=== PATIENT | male | born 1950 | race African-American/Black ===

== ENCOUNTER 2017-12-21 17:16 | Inpatient (IN) | payer BC, OTHER ==
--- NOTE | 2017-12-21 17:39 | PDOC ---
History of Present Illness - General Chief Complaint: Blood Pressure Problem Stated Complaint: SHORT OF BREATH Time Seen by Provider: 12/21/17 17:30 History Source: Patient Exam Limitations: No Limitations - History of Present Illness Initial Comments: 12/21/17 17:38 60y M hx of htn, dm presents with complaint of sob. Pt states he was outside cleaning his snow off of his car and began to feel sob. denies any associated cp , headache, diaphoresis, n/v, dizziness, numbness/tingling/weakness, palitations , extremity swelling, back pain. The patient does note a few episodes of similar sob, and burning chest pain the past few weeks, but none in the past few days. 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 pt ntose he has not taken any bp meds the past few days due to running out of them. recently changed his htn meds from bystolic to clonidine Past History - Past Medical History Allergies/Adverse Reactions: Allergies Allergy/AdvReac Type Severity Reaction Status Date / Time No Known Allergies Allergy Verified 12/21/17 17:33 Home Medications: Ambulatory Orders Amlodipine Bes/Olmesartan Med [Chyna 10-40 mg Tablet] 1 each PO DAILY 12/21/17 Clonidine HCl [Catapres] 0.2 mg PO BID 12/21/17 Nebivolol HCl [Bystolic] 10 mg PO DAILY 12/21/17 Sitagliptin Phos/Metformin HCl [Janumet 50-500 mg Tablet] 1 each PO BID Review of Systems - Review of Systems Able to Perform ROS?: Yes Comments:: 12/21/17 18:52 Constitutional - no reported Fever, Chills, HEENT: no reported vision changes, sore throat Respiratory: +sob, no reported cough, hemoptysis Cardiac: no reported chest pain, palpitations, light headedness, leg swelling Abd/GI: no reported abd pain, nausea, vomiting, blood per rectum, melena, diarrhea : no reported dysuria, frequency, discharge Musculskelatal - no reported back pain, joint swelling skin - no reported bruising, erythema, rash neurological: no reported headache, numbness, focal weakness, tingling, ataxia, hematologic: no reported easy bruising, easy bleeding *Physical Exam - Physical Exam Comments: 12/21/17 18:53 GENERAL: The patient is awake, alert, and fully oriented, Nontoxic - in no acute distress. HEAD: Normocephalic, atraumatic. EYES: extraocular movements intact, sclera anicteric, conjunctiva clear. ENT: Normal voice, Moist mucous membranes. NECK: Normal range of motion, supple LUNGS: Breath sounds equal, clear to auscultation bilaterally. No wheezes, no rhonchi, no rales. HEART: Regular rate and rhythm, normal S1 and S2 without murmur, rub or gallop. ABDOMEN: Soft, nontender, normoactive bowel sounds. No guarding, no rebound. . No CVA tenderness EXTREMITIES: Normal range of motion, trace edema. No calf tenderenss, neg homans NEUROLOGICAL: No facial assymetry, Normal speech, PSYCH: Normal mood, normal affect. SKIN: Warm, Dry, normal turgor, Heart Score/ECG Review - ECG Impressions Comment:: 12/21/17 20:54 Twelve-lead EKG was performed and reviewed by me. There is normal sinus rhythm with a rate of 108 LVH LAFB ED Treatment Course - LABORATORY CBC & Chemistry Diagram: 12/21/17 18:25 12/21/17 18:25 Medical Decision Making - Medical Decision Making 12/21/17 19:10 ddx - hypertensive emergency -?pulm edema trace edema in LE however lugns clear to ascultation cxr cw congestion pts BP improved slightly - but will give pt ntg will reassess his vitals awaiting bnp & trop anticpate admission for further management 12/21/17 20:48 will admit for htn emergency 12/21/17 21:07 case dw MARCELO harrison agree with admission for further management will try to control his bp - wll giv ealsix and his normal dose of clonadine if poorly contoroled, will consider transfer to [facility] pt feeling better, no cp Case discussed in detail with admitting physician including history, physical exam and ancillary studies. Admitting physician has assumed care for the patient, will follow all pending diagnostics and will complete the evaluation and treatment. *DC/Admit/Observation/Transfer Diagnosis at time of Disposition: Hypertensive emergency CHF (congestive heart failure) Qualifiers: Heart failure type: other Qualified Code(s): I50.9 - Heart failure, unspecified - Discharge Dispostion Condition at time of disposition: Stable Decision to Admit order: Yes - Referrals Referrals: Maximino Werner MD [Primary Care Provider] - - Patient Instructions - Post Discharge Activity
[2017-12-21 18:15] LABS: URINE APPEARANCE Clear; URINE BILIRUBIN Negative (NEGATIVE); URINE COLOR Yellow; URINE GLUCOSE (UA) Negative (NEGATIVE); URINE KETONE Negative (NEGATIVE); URINE LEUK ESTERASE Negative (NEGATIVE); URINE NITRITE Negative (NEGATIVE); URINE PROTEIN 3+ (NEGATIVE); URINE UROBILINOGEN 0.2 (0.2-1.0)
[2017-12-21] MEDS ORDERED: NITROGLYCERIN SUBLINGUAL 1/150 0.4 MG TAB SL ONE (18:49)
[2017-12-21 19:01] LABS: BASO % 1.7 % (0-2.0); EOS % 1.4 % (0-4.5); HEMATOCRIT 50.3 % (35.4-49); LYMPH % 16.4 % (8-40); MCH 28.1 pg (25.7-33.7); MCHC 31.9 g/dl (32.0-35.9); MEAN CELL VOLUME 88.1 fl (80-96); MEAN PLT VOLUME 10.1 fl (7.5-11.1); MONO % 7.5 % (3.8-10.2); PLATELET COUNT 193 K/MM3 (134-434); RBC 5.71 M/mm3 (4.00-5.60); RDW 12.3 % (11.9-15.9); WHITE BLOOD COUNT 7.5 K/mm3 (4.0-10.8)
[2017-12-21 19:07] LABS: ALBUMIN 3.9 g/dl (3.5-5.0); ALK PHOS 75 U/L (32-92); ANION GAP 10 MMOL/L (8-16); BILIRUBIN,TOTAL 0.6 mg/dl (0.2-1.0); BLOOD UREA NITROGEN 25 mg/dl (7-18); CHLORIDE 98 mmol/L (98-107); CO2 29 mmol/L (22-28); CREATININE 1.4 mg/dl (0.6-1.3); GLUCOSE,RANDOM 168 mg/dl (74-106); POTASSIUM 3.8 mmol/L (3.5-5.1); SGOT/AST 22 U/L (10-42); SGPT/ALT 23 U/L (10-40); SODIUM 137 mmol/L (136-145); TOT PROT 7.5 g/dl (6.4-8.3)
[2017-12-21 19:15] LABS: URINE WBC 0-2 (0-2)
[2017-12-21] MEDS ORDERED: NITROGLYCERIN SUBLINGUAL 1/150 0.4 MG TAB ONE (19:28)
[2017-12-21] MEDS ORDERED: cloNIDine HCL 0.1 MG TABLET PO ONE (20:48)
[2017-12-21] MEDS ORDERED: cloNIDine HCL 0.1 MG TABLET ONE (20:50)
[2017-12-21] MEDS ORDERED: FUROSEMIDE 40 MG TABLET (FP) PO ONE (21:05)
[2017-12-21] MEDS ORDERED: FUROSEMIDE 40 MG TABLET (FP) ONE (21:07)
[2017-12-21 21:43] LABS: N-TERMINAL BNP 756.2 pg/ml (5-125)
--- NOTE | 2017-12-21 22:49 | HP ---
CHIEF COMPLAINT: SOB PCP: Dr. Rodriguez HISTORY OF PRESENT ILLNESS: This is a 67 y/o man with a PMHx of HTN, NIDDM. Who presents to the ED with SOB after clearing snow from his car today. Patient reports having an episode of SOB after eating last Monday. The patient reports not taking his BP meds for 2- 3 days because he forget to take them due to his busy work schedule. 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 Family History: Unknown hx of parents- both Brother- Alive and well Allergies No Known Allergies Allergy (Verified 12/21/17 17:33) HOME MEDICATIONS: Home Medications Medication Instructions Recorded Amlodipine Bes/Olmesartan Med 1 each PO DAILY 12/21/17 [Chyna 10-40 mg Tablet] Clonidine HCl [Catapres] 0.2 mg PO BID 12/21/17 Nebivolol HCl [Bystolic] 10 mg PO DAILY 12/21/17 Sitagliptin Phos/Metformin HCl 1 each PO BID 12/21/17 [Janumet 50-500 mg Tablet] REVIEW OF SYSTEMS CONSTITUTIONAL: Absent: fever, chills, diaphoresis, generalized weakness, malaise, loss of appetite, weight change HEENT: Absent: rhinorrhea, nasal congestion, throat pain, throat swelling, difficulty swallowing, mouth swelling, ear pain, eye pain, visual changes CARDIOVASCULAR: Absent: chest pain, syncope, palpitations, irregular heart rate, lightheadedness , peripheral edema RESPIRATORY: shortness of breath, dyspnea with exertion Absent: cough, orthopnea, wheezing, stridor, hemoptysis GASTROINTESTINAL: Absent: abdominal pain, abdominal distension, nausea, vomiting, diarrhea, constipation, melena, hematochezia GENITOURINARY: Absent: dysuria, frequency, urgency, hesitancy, hematuria, flank pain, genital pain MUSCULOSKELETAL: Absent: myalgia, arthralgia, joint swelling, back pain, neck pain SKIN: Absent: rash, itching, pallor HEMATOLOGIC/IMMUNOLOGIC: Absent: easy bleeding, easy bruising, lymphadenopathy, frequent infections ENDOCRINE: Absent: unexplained weight gain, unexplained weight loss, heat intolerance, cold intolerance NEUROLOGIC: Absent: headache, focal weakness or paresthesias, dizziness, unsteady gait, seizure, mental status changes, bladder or bowel incontinence PSYCHIATRIC: Absent: anxiety, depression, suicidal or homicidal ideation, hallucinations. PHYSICAL EXAMINATION Vital Signs - 24 hr 12/21/17 12/21/17 12/21/17 17:29 18:00 18:44 Temperature 98.6 F Pulse Rate 115 H Pulse Rate [ 115 H 112 H Apical] Respiratory 20 21 H 23 H Rate Blood Pressure 236/140 H Blood Pressure 190/126 H 184/130 H [Right Arm] O2 Sat by Pulse 96 96 94 L Oximetry (%) 12/21/17 20:30 Temperature Pulse Rate Pulse Rate [ 105 H Apical] Respiratory 21 H Rate Blood Pressure Blood Pressure 177/123 H [Right Arm] O2 Sat by Pulse 97 Oximetry (%) GENERAL: Awake, alert, and fully oriented, in no acute distress. HEAD: Normal with no signs of trauma. EYES: Pupils equal, round and reactive to light, extraocular movements intact, sclera anicteric, conjunctiva clear. No lid lag. EARS, NOSE, THROAT: Ears normal, nares patent, oropharynx clear without exudates. Moist mucous membranes. NECK: Normal range of motion, supple without lymphadenopathy, JVD, or masses. LUNGS: Breath sounds equal, clear to auscultation bilaterally. No wheezes, and no crackles. No accessory muscle use. HEART: Regular rate and rhythm, normal S1 and S2 without murmur, rub or gallop. ABDOMEN: Soft, nontender, not distended, normoactive bowel sounds, no guarding, no rebound, no masses. No hepatomegaly or splenomegaly. MUSCULOSKELETAL: Normal range of motion at all joints. No bony deformities or tenderness. No CVA tenderness. UPPER EXTREMITIES: 2+ pulses, warm, well-perfused. No cyanosis. No clubbing. No peripheral edema. LOWER EXTREMITIES: 2+ pulses, warm, well-perfused. No calf tenderness. +1 R>L peripheral edema. NEUROLOGICAL: Cranial nerves II-XII intact. Normal speech. Gait not observed. PSYCHIATRIC: Cooperative. Good eye contact. Appropriate mood and affect. SKIN: Warm, dry, normal turgor, no rashes or lesions noted, normal capillary refill. Laboratory Results - last 24 hr 12/21/17 12/21/17 12/21/17 18:00 18:25 18:25 WBC 7.5 RBC 5.71 H Hgb 16.0 Hct 50.3 H MCV 88.1 MCH 28.1 MCHC 31.9 L RDW 12.3 Plt Count 193 MPV 10.1 Absolute Neuts (auto) 5.5 Neutrophils % 73.0 Lymphocytes % 16.4 Monocytes % 7.5 Eosinophils % 1.4 Basophils % 1.7 Sodium 137 Potassium 3.8 Chloride 98 Carbon Dioxide 29 H Anion Gap 10 BUN 25 H Creatinine 1.4 H Creat Clearance w eGFR 50.55 Random Glucose 168 H Calcium 9.0 Total Bilirubin 0.6 AST 22 ALT 23 Alkaline Phosphatase 75 Creatine Kinase Troponin I B-Natriuretic Peptide 756.2 H Total Protein 7.5 Albumin 3.9 Urine Color Yellow Urine Appearance Clear Urine pH 7.0 Ur Specific [place] 1.025 Urine Protein 3+ H Urine Glucose (UA) Negative Urine Ketones Negative Urine Blood 2+ H Urine Nitrite Negative Urine Bilirubin Negative Urine Urobilinogen 0.2 Ur Leukocyte Esterase Negative Urine RBC 5-10 Urine WBC 0-2 12/21/17 12/21/17 18:25 18:25 WBC RBC Hgb Hct MCV MCH MCHC RDW Plt Count MPV Absolute Neuts (auto) Neutrophils % Lymphocytes % Monocytes % Eosinophils % Basophils % Sodium Potassium Chloride Carbon Dioxide Anion Gap BUN Creatinine Creat Clearance w eGFR Random Glucose Calcium Total Bilirubin AST ALT Alkaline Phosphatase Creatine Kinase 127 Troponin I < 0.03 B-Natriuretic Peptide Total Protein Albumin Urine Color Urine Appearance Urine pH Ur Specific [place] Urine Protein Urine Glucose (UA) Urine Ketones Urine Blood Urine Nitrite Urine Bilirubin Urine Urobilinogen Ur Leukocyte Esterase Urine RBC Urine WBC ASSESSMENT/PLAN: This is a 67 y/o man with a PMHx of HTN, DM. Admitted for Telemetry for Hypertensive Emergency, Pulmonary Edema, Acute CHF, and SU for further evaluation of their emergent condition. Plan: FEN PO Fluids as tolerated Replete lytes prn Low Na, Diabetic Diet DVT ppx OOB SCD Heparin SQ Dispo: Requires Inpatient Care Problem List - Problem (1) Hypertensive emergency Assessment/Plan: Likely due to non-compliance Continue cardiac monitoring Appreciate Cardiology consult UA +3 Protein, +2 blood Bun 25, Cr 1.4 Clonidine, Lasix, Nitrostat given in ED Resume home meds: Clonidine, Norvasc, Olmesartan Continue Lasix Monitor renal function Will need renal ultrasound in outpatient upon d/c- r/o renal artery stenosis EKG- reviewed Serial Enzymes Echo in am CBC, BMP in am Consider transfer to [facility] if condition worsens Code(s): I16.1 - HYPERTENSIVE EMERGENCY (2) Pulmonary edema Assessment/Plan: Likely secondary to HF O2 Continue Lasix Code(s): J81.1 - CHRONIC PULMONARY EDEMA Qualifiers: Chronicity: acute Qualified Code(s): J81.0 - Acute pulmonary edema (3) CHF (congestive heart failure) Assessment/Plan: Likely secondary to Uncontrolled HTN BNP 745 Chest Xray image reviewed Lasix given in ED On exam: +1 Pitting to B/L LE Strict INOs Daily weights Appreciate Cardiology consult Code(s): I50.9 - HEART FAILURE, UNSPECIFIED Qualifiers: Heart failure type: other Qualified Code(s): I50.9 - Heart failure, unspecified (4) SOB (shortness of breath) Assessment/Plan: Likely secondary to HF vs PE vs RI Chest Xray- reviewed BNP 756 Serial Enzymes [place] score 1.5 PERC Rule 2 Lasix and Nitrate given in ED- pt reports improvement Code(s): R06.02 - SHORTNESS OF BREATH (5) Diabetes mellitus Assessment/Plan: controlled BGMs ISS Hold Metformin secondary to SU Monitor renal function Code(s): E11.9 - TYPE 2 DIABETES MELLITUS WITHOUT COMPLICATIONS Visit type - Emergency Visit Emergency Visit: Yes ED Registration Date: 12/21/17 Care time: The patient presented to the Emergency Department on the above date and was hospitalized for further evaluation of their emergent condition. - New Patient This patient is new to me today: Yes Date on this admission: 12/21/17 - Critical Care Critical Care patient: No
[2017-12-21 23:17] VITALS: BMI 29.8
[2017-12-22] MEDS ORDERED: ACETAMINOPHEN 325 MG TABLET (FP) PO PRN (00:57)
[2017-12-22] MEDS: INSULIN SLIDING SCALE (NOVOLOG) 1 VIAL SQ SCH ×3 (06:13→22:27)
[2017-12-22] MEDS: amLODIPine BESYLATE 10 MG TABLET (FP) PO SCH (08:00)
[2017-12-22] MEDS: VALSARTAN 160 MG TABLET (UD) PO SCH (08:00)
[2017-12-22 08:37] LABS: BASO % 0.3 % (0-2.0); HEMATOCRIT 44.3 % (35.4-49); HEMOGLOBIN 14.5 GM/dl (11.7-16.9); MCH 28.5 pg (25.7-33.7); MCHC 32.7 g/dl (32.0-35.9); MEAN CELL VOLUME 87.1 fl (80-96); MEAN PLT VOLUME 10.1 fl (7.5-11.1); MONO % 6.6 % (3.8-10.2); NEUT % 56.1 % (42.8-82.8); PLATELET COUNT 185 K/MM3 (134-434); RBC 5.08 M/mm3 (4.00-5.60); RDW 12.4 % (11.9-15.9); WHITE BLOOD COUNT 6.5 K/mm3 (4.0-10.8)
[2017-12-22 08:53] LABS: ANION GAP 6 MMOL/L (8-16); BLOOD UREA NITROGEN 23 mg/dl (7-18); CALCIUM 8.9 mg/dl (8.4-10.2); CHLORIDE 102 mmol/L (98-107); CHOLESTEROL 177 mg/dl; CO2 32 mmol/L (22-28); CREATININE 1.4 mg/dl (0.6-1.3); GLUCOSE,RANDOM 158 mg/dl (74-106); HDL CHOLESTEROL 43 mg/dl (29-89); LDL CHOLESTEROL (ONLY DFH) 124 mg/dl; MAGNESIUM 2.1 mg/dL (1.8-2.4); PHOSPHOROUS 3.3 mg/dl (2.5-4.6); POTASSIUM 4.4 mmol/L (3.5-5.1); SODIUM 140 mmol/L (136-145); TRIGLYCERIDES 50 mg/dl (35-160)
--- NOTE | 2017-12-22 09:34 | ECHO ---
Name: MCKINLEY BORGES Exam:Adult Echocardiogram Study Date: 12/22/2017 08:45 AM Age: 67 yrs Reason For Study: SOB HYPERTENSIVE URGENCY Height: 67 in Weight: 187 lb BSA: 2.0 m2 MMode/2D Measurements & Calculations IVSd: 1.4 cm Ao root diam: 2.7 cm LVIDd: 5.0 cm LA dimension: 3.7 cm LVIDs: 3.3 cm LVPWd: 1.1 cm EDV(Teich): 119.2 ml ESV(Teich): 44.2 ml Doppler Measurements & Calculations MV E max princess: 60.6 cm/sec MV A max princess: 102.6 cm/sec MV E/A: 0.59 Left Ventricle There is mild concentric left ventricular hypertrophy. Left ventricular systolic function is normal. Ejection Fraction = 50-55%. The transmitral spectral Doppler flow pattern is suggestive of impaired LV relaxat ion. Right Ventricle The right ventricle is grossly normal size. The right ventricular systolic function is grossly normal . Atria The left atrium is borderline dilated. Right atrial size is normal. Mitral Valve The mitral valve is normal in structure and function. There is no mitral valve stenosis. There is tra ce mitral regurgitation. Tricuspid Valve The tricuspid valve is normal in structure and function. There is Trace to mild tricuspid regurgitati on. There was insufficient TR detected to calculate RV systolic pressure. Aortic Valve There is trivial aortic sclerosis.;. No hemodynamically significant valvular aortic stenosis. No aort ic regurgitation is present. Pulmonic Valve The pulmonic valve is not well seen, but is grossly normal. There is no pulmonic valvular stenosis. T race pulmonic valvular regurgitation. Great Vessels The aortic root is normal size. Pericardium/Pleura There is no pericardial effusion. Interpretation Summary There is mild concentric left ventricular hypertrophy. Left ventricular systolic function is normal. Ejection Fraction = 50-55%. The transmitral spectral Doppler flow pattern is suggestive of impaired LV relaxation. The left atrium is borderline dilated. There is trace mitral regurgitation. There is Trace to mild tricuspid regurgitation. The aortic root is normal size. There is no pericardial effusion. MD [place] *[place] 12/22/2017 09:34 AM
[2017-12-22] MEDS ORDERED: FUROSEMIDE 40 MG/4 ML INJECTABLE VIAL IVPUSH SCH (10:00)
[2017-12-22] MEDS ORDERED: cloNIDine HCL 0.1 MG TABLET PO SCH (10:00)
[2017-12-22] MEDS ORDERED: PATIENT'S OWN MEDICATION (NON-FORMULARY) (Amlodipine Bes/Olmesartan Med [Azor 10-40 Mg Tab PO SCH (10:00)
--- NOTE | 2017-12-22 14:25 | PN ---
Physical Exam: SUBJECTIVE: Patient seen and examined at bedside. Shortness of breath has resolved. Denies chest pain. Acknowledges erratic compliance with meds. OBJECTIVE: Vital Signs Period Temp Pulse Resp BP Sys/[place] Pulse Ox Last 24 Hr 98 F-98.6 F 86-118 18-23 153-236/92-140 94-97 GENERAL: The patient is awake, alert, and fully oriented, in no acute distress. LUNGS: Breath sounds equal, clear to auscultation bilaterally, no wheezes, no crackles, no accessory muscle use. Speaks in complete sentences. HEART: Regular rate and rhythm, S1, S2 ABDOMEN: Soft, nontender, nondistended EXTREMITIES: 2+ pulses, warm, well-perfused, no edema. No calf tenderness. NEUROLOGICAL: Cranial nerves II through XII grossly intact. Normal speech, steady gait. Laboratory Results - last 24 hr 12/21/17 12/21/17 12/21/17 18:00 18:25 18:25 WBC 7.5 RBC 5.71 H Hgb 16.0 Hct 50.3 H MCV 88.1 MCH 28.1 MCHC 31.9 L RDW 12.3 Plt Count 193 MPV 10.1 Absolute Neuts (auto) 5.5 Neutrophils % 73.0 Lymphocytes % 16.4 Monocytes % 7.5 Eosinophils % 1.4 Basophils % 1.7 Sodium 137 Potassium 3.8 Chloride 98 Carbon Dioxide 29 H Anion Gap 10 BUN 25 H Creatinine 1.4 H Creat Clearance w eGFR 50.55 POC Glucometer Random Glucose 168 H Hemoglobin A1c % Calcium 9.0 Phosphorus Magnesium Total Bilirubin 0.6 AST 22 ALT 23 Alkaline Phosphatase 75 Creatine Kinase Troponin I B-Natriuretic Peptide 756.2 H Total Protein 7.5 Albumin 3.9 Triglycerides Cholesterol Total LDL Cholesterol HDL Cholesterol Urine Color Yellow Urine Appearance Clear Urine pH 7.0 Ur Specific [place] 1.025 Urine Protein 3+ H Urine Glucose (UA) Negative Urine Ketones Negative Urine Blood 2+ H Urine Nitrite Negative Urine Bilirubin Negative Urine Urobilinogen 0.2 Ur Leukocyte Esterase Negative Urine RBC 5-10 Urine WBC 0-2 12/21/17 12/21/17 12/22/17 18:25 18:25 00:15 WBC RBC Hgb Hct MCV MCH MCHC RDW Plt Count MPV Absolute Neuts (auto) Neutrophils % Lymphocytes % Monocytes % Eosinophils % Basophils % Sodium Potassium Chloride Carbon Dioxide Anion Gap BUN Creatinine Creat Clearance w eGFR POC Glucometer Random Glucose Hemoglobin A1c % Calcium Phosphorus Magnesium Total Bilirubin AST ALT Alkaline Phosphatase Creatine Kinase 127 Troponin I < 0.03 0.02 B-Natriuretic Peptide Total Protein Albumin Triglycerides Cholesterol Total LDL Cholesterol HDL Cholesterol Urine Color Urine Appearance Urine pH Ur Specific [place] Urine Protein Urine Glucose (UA) Urine Ketones Urine Blood Urine Nitrite Urine Bilirubin Urine Urobilinogen Ur Leukocyte Esterase Urine RBC Urine WBC 12/22/17 12/22/17 12/22/17 05:49 07:51 07:51 WBC 6.5 RBC 5.08 Hgb 14.5 Hct 44.3 MCV 87.1 MCH 28.5 MCHC 32.7 RDW 12.4 Plt Count 185 MPV 10.1 Absolute Neuts (auto) 3.7 Neutrophils % 56.1 D Lymphocytes % 35.0 D Monocytes % 6.6 Eosinophils % 2.0 Basophils % 0.3 Sodium 140 Potassium 4.4 Chloride 102 Carbon Dioxide 32 H Anion Gap 6 L BUN 23 H Creatinine 1.4 H Creat Clearance w eGFR 50.55 POC Glucometer 132 Random Glucose 158 H Hemoglobin A1c % Calcium 8.9 Phosphorus 3.3 Magnesium 2.1 Total Bilirubin AST ALT Alkaline Phosphatase Creatine Kinase Troponin I B-Natriuretic Peptide Total Protein Albumin Triglycerides 50 Cholesterol 177 Total LDL Cholesterol 124 HDL Cholesterol 43 Urine Color Urine Appearance Urine pH Ur Specific [place] Urine Protein Urine Glucose (UA) Urine Ketones Urine Blood Urine Nitrite Urine Bilirubin Urine Urobilinogen Ur Leukocyte Esterase Urine RBC Urine WBC 12/22/17 12/22/17 12/22/17 07:51 07:51 13:10 WBC RBC Hgb Hct MCV MCH MCHC RDW Plt Count MPV Absolute Neuts (auto) Neutrophils % Lymphocytes % Monocytes % Eosinophils % Basophils % Sodium Potassium Chloride Carbon Dioxide Anion Gap BUN Creatinine Creat Clearance w eGFR POC Glucometer 187 Random Glucose Hemoglobin A1c % 7.8 H Calcium Phosphorus Magnesium Total Bilirubin AST ALT Alkaline Phosphatase Creatine Kinase Troponin I 0.03 B-Natriuretic Peptide Total Protein Albumin Triglycerides Cholesterol Total LDL Cholesterol HDL Cholesterol Urine Color Urine Appearance Urine pH Ur Specific [place] Urine Protein Urine Glucose (UA) Urine Ketones Urine Blood Urine Nitrite Urine Bilirubin Urine Urobilinogen Ur Leukocyte Esterase Urine RBC Urine WBC Active Medications Generic Name Dose Route Start Last Admin Trade Name Freq PRN Reason Stop Dose Admin Acetaminophen 650 mg 12/22/17 00:57 11/16/18 01:04 Tylenol - PO 650 mg Q6H PRN Administration PAIN OR FEVER Amlodipine Besylate 10 mg 12/22/17 10:00 12/22/17 08:00 Norvasc - PO 10 mg DAILY JAZZMINE Administration Clonidine 0.2 mg 12/22/17 10:00 12/22/17 08:00 Catapres - PO 0.2 mg BID JAZZMINE Administration Furosemide 40 mg 12/22/17 10:00 12/22/17 11:29 Lasix Injection - IVPUSH 40 mg DAILY JAZZMINE Administration Insulin Aspart 1 vial 12/22/17 07:00 12/22/17 13:11 Novolog Vial Sliding Scale - SQ 2 unit ACHS JAZZMINE Administration Protocol Valsartan 320 mg 12/22/17 10:00 12/22/17 08:00 Diovan - PO 320 mg DAILY JAZZMINE Administration ASSESSMENT/PLAN 67 year-old male with a PMH significant for HTN and non-insulin dependent Type II diabetes. Admitted for hypertensive emergency and flash pulmonary edema. Hypertensive emergency Acute pulmonary edema --BP 236/140 on arrival with pulmonary edema seen on CXR --treated in ED with SL nitro, Lasix IV 40mg x 1, and clonidine --today treated with additional Lasix IV 40mg x 1, amlodipine, valsartan, and clonidine with improvement in BP 150s/90s and with repeat CXR showing significant improvement in congestion --troponins neg x 3 --ECG not suggestive of ischemia --telemetry monitoring --Dr. Clancy to see and evaluate patient Lobular density --seen on CXR today --CT chest ordered NIDDM --Novolog sliding scale coverage DVT prophylaxis: subq heparin Dispo: continues to require inpatient care. full code. Visit type - Emergency Visit Emergency Visit: Yes ED Registration Date: 12/21/17 Care time: The patient presented to the Emergency Department on the above date and was hospitalized for further evaluation of their emergent condition. - New Patient This patient is new to me today: Yes Date on this admission: 12/22/17 - Critical Care Critical Care patient: No
--- NOTE | 2017-12-22 16:01 | CON.CARD ---
Consult Consult Specialty:: cardio - History of Present Illness Chief Complaint: sob History of Present Illness: 67 M here with sob which occurred while cleaning snow off his car. no CP with that episode. had one other episode of sob recently, without heavy exertion. recently has been feeling sternal burning sensation when eats greasy foods. no other CP CXR on DOA showed acute pulm edema pattern with fluffy alveolar infiltrates perihilar predominance, vasc redistrib, no effusions. rpt CXR today clear given lasix 40 po yest in ER. received 40 iv today in AM presently no cp, sob, palpitations, presyncope PMH: HTN DM - Alcohol/Substance Use Hx Alcohol Use: No - Smoking History Smoking history: Never smoked Home Medications - Allergies Allergies/Adverse Reactions: Allergies Allergy/AdvReac Type Severity Reaction Status Date / Time No Known Allergies Allergy Verified 12/21/17 17:33 - Home Medications Home Medications: Ambulatory Orders Amlodipine Bes/Olmesartan Med [Chyna 10-40 mg Tablet] 1 each PO DAILY 12/21/17 Clonidine HCl [Catapres] 0.2 mg PO BID 12/21/17 Nebivolol HCl [Bystolic] 10 mg PO DAILY 12/21/17 Sitagliptin Phos/Metformin HCl [Janumet 50-500 mg Tablet] 1 each PO BID Review of Systems - Review of Systems Constitutional: denies: Chills, Fever Eyes: denies: Eye Pain HENT: denies: Nasal Congestion Neck: denies: Stiffness Cardiovascular: denies: Palpitations Respiratory: denies: Orthopnea, PND Gastrointestinal: denies: Diarrhea, Rectal Bleeding Genitourinary: denies: Burning, Hematuria Musculoskeletal: denies: Muscle Pain Integumentary: denies: Rash Neurological: denies: Numbness, Seizure, Syncope Endocrine: denies: Excessive Sweating Hematology/Lymphatic: denies: Excessive Bleeding Vital Signs: Vital Signs Temperature 97.8 F 12/22/17 14:45 Pulse Rate 102 H 12/22/17 14:46 Respiratory Rate 19 12/22/17 14:46 Blood Pressure 178/115 H 12/22/17 14:46 O2 Sat by Pulse Oximetry (%) 97 12/22/17 14:45 Constitutional: Yes: Well Nourished, No Distress Eyes: No: Sclera Icterus HENT: No: Nasal Congestion Neck: No: Decreased ROM Respiratory: Yes: CTA Bilaterally. No: Accessory Muscle Use, Rales, Wheezes Gastrointestinal: Yes: Normal Bowel Sounds. No: Distention, Hepatomegaly, Palpable Mass, Tenderness Cardiovascular: Yes: Regular Rate and Rhythm JVD: No Carotid Bruit: No PMI: Non-Displaced Heart Sounds: Yes: S1, S2. No: Gallop Murmur: No: Systolic Murmur, Diastolic Murmur Musculoskeletal: Yes: Other (No kyphosis) Extremities: No: Cool, Cyanosis Edema: No Peripheral Pulses: 2+ Left Carotid, 2+ Right Carotid, 2+ Left Doralis Pedis, 2+ Right Dorsalis Pedis Integumentary: No: Jaundice Neurological: Yes: Alert, Oriented (x3) Psychiatric: No: Agitated - Other Data Labs, Other Data: CBC, BMP 12/22/17 07:51 12/22/17 07:51 Troponin, BNP 12/21/17 12/21/17 12/22/17 18:25 18:25 00:15 Troponin I < 0.03 0.02 B-Natriuretic Peptide 756.2 H 12/22/17 07:51 Troponin I 0.03 B-Natriuretic Peptide Troponin, BNP 12/21/17 12/21/17 12/22/17 18:25 18:25 00:15 Troponin I < 0.03 0.02 B-Natriuretic Peptide 756.2 H 12/22/17 07:51 Troponin I 0.03 B-Natriuretic Peptide Laboratory Tests 12/21/17 12/21/17 12/22/17 18:25 18:25 00:15 WBC Hgb Plt Count Sodium Potassium Carbon Dioxide BUN Creatinine AST 22 ALT 23 Troponin I < 0.03 0.02 B-Natriuretic Peptide 756.2 H Triglycerides Cholesterol Total LDL Cholesterol HDL Cholesterol 12/22/17 12/22/17 12/22/17 07:51 07:51 07:51 WBC 6.5 Hgb 14.5 Plt Count 185 Sodium 140 Potassium 4.4 Carbon Dioxide 32 H BUN 23 H Creatinine 1.4 H AST ALT Troponin I 0.03 B-Natriuretic Peptide Triglycerides 50 Cholesterol 177 Total LDL Cholesterol 124 HDL Cholesterol 43 Assessment/Plan CXR: acute pulm edema pattern (see HPI) ECG: NSR, prob LVH. left axis. biatrial abnormality. NSTWA I/avl. no path q's Echo 12/22/17: mild conc LVH. nl LVSF (EF 50-55%). nl RV. borderline LA size. valve fxn WNL. no RVSP. nl aortic root. no peric eff. tele: NSR acute pulm edema, HTN emergency: -ER initial bp 236/140 -cxr with acute pulm edema pattern--resolved today (after only lasix 40 po x 1 yest)--likely due to acutely elevated bp (admits to med non-adherence at home) ...? component of rebound effect of clonidine abrupt withdrawal. -BNP 700. -trop neg x 3 -ECG non-ischemic -BP improved, 178/115 currently. -cont amlodipine 10, clonidine 0.2 (incr bid to tid), valsartan 320 -add chlorthalidone if bp not progressively improving--? in am (expect pt will come off lasix quickly here). then spironolactone +/- b-chidi next. -given pt's med non-adherence history, once bp is better controlled would rec stopping clonidine (taper to off) given risks of severe sequelae of abrupt discontinuation of this med (pt advised of these risks, and counselled against missing med doses) -will need inpatient ischemia eval (pharm vasodilator (lexiscan) nuclear stress test) once BP better controlled--clinical presentation is high risk for underlying CAD (though suspect hypertensive heart dz/diast chf here) DM: -per hospitalist rec transfer to telemetry bed for monitoring of recurrent htn emergency/flash pulm edema
[2017-12-22] MEDS: cloNIDine HCL 0.1 MG TABLET PO SCH (22:25)
[2017-12-22] MEDS: HEPARIN NA (PORCINE) 5,000 UNITS/ML 1ML VIAL SQ SCH (22:26)
--- NOTE | 2017-12-22 23:19 | PN ---
Physical Exam: SUBJECTIVE: Patient seen and examined at bedside. Arrived from [facility] today, already seen by primary team. No acute complaints. OBJECTIVE: Vital Signs Period Temp Pulse Resp BP Sys/Almonte Pulse Ox Last 24 Hr 97.8 F-98.1 F 86-102 18-19 153-178/92-115 97 GENERAL: A&Ox3, no acute distress EYES: PERRLA, EOMI ENT: Moist mucus membranes NECK: No JVD LUNGS: CTA, no wheezes HEART: RRR, no murmurs ABDOMEN: Soft, nontender, BS present MUSCULOSKELETAL: No CVA Tenderness EXTREMITIES: 2+ pulses, no edema. NEUROLOGICAL: Cranial nerves II-XII intact. A/P 67 year-old male arrived from [facility] and evaluated today for pulmonary edema/htn emergency -for stress tomorrow per Dr. lau -continue amlodipine, clonidine, valsartan -if continues to be hypertensive, will increase clonidine and/or add hydralazine Visit type - Emergency Visit Emergency Visit: No - New Patient This patient is new to me today: Yes Date on this admission: 12/23/17 - Critical Care Critical Care patient: No
[2017-12-23] MEDS ORDERED: cloNIDine HCL 0.1 MG TABLET PO ONE (01:54)
--- NOTE | 2017-12-23 02:05 | HP ---
TRANSFER FROM [place]; ACCEPTANCE NOTE HISTORY OF PRESENT ILLNESS: Per Admitting HPI: "This is a 67 y/o man with a PMHx of HTN, NIDDM. Who presents to the ED with SOB after clearing snow from his car today. Patient reports having an episode of SOB after eating last Monday. The patient reports not taking his BP meds for 2-3 days because he forget to take them due to his busy work schedule. Patient denies fever, cough, chills, dizziness, CP, palpitations, numbness, AP, N/V/D, constipation, dysuria" Since he has been at his BP has been much better controlled. He is on amlodipine 10, clonidine 0.2 TID, Valsartan 320. Adding on Chlorthalidone as still trending in the 150-160 range (initial pressures in the 230 range). Echo showed mld concentric LVH with LV/RV EF wnl; no RVSP, LA upper limit of normal but NSR on telemetry. EKG shows NSR with LVH strongly suggested. He is chest pain free here and has no new acute complaints. He was transferred for further cardiac workup with Kelli. PMH/PSH reviewed and are as per chart Social History: Reviewed; as per chart Family History: Asked and noncontributory Allergies No Known Allergies Allergy (Verified 12/21/17 17:33) HOME MEDICATIONS: Home Medications Medication Instructions Recorded Amlodipine Bes/Olmesartan Med 1 each PO DAILY 12/21/17 [Chyna 10-40 mg Tablet] Clonidine HCl [Catapres] 0.2 mg PO BID 12/21/17 Nebivolol HCl [Bystolic] 10 mg PO DAILY 12/21/17 Sitagliptin Phos/Metformin HCl 1 each PO BID 12/21/17 [Janumet 50-500 mg Tablet] PHYSICAL EXAMINATION Vital Signs - 24 hr 12/22/17 12/22/17 12/22/17 04:00 09:21 13:15 Temperature 98 F Pulse Rate 94 H 86 Respiratory 18 18 Rate Blood Pressure 172/115 H 154/94 153/92 O2 Sat by Pulse Oximetry (%) 12/22/17 12/22/17 12/22/17 14:45 14:46 19:12 Temperature 97.8 F 97.8 F Pulse Rate 98 H 102 H 92 H Respiratory 18 19 18 Rate Blood Pressure 167/106 H 178/115 H 167/102 H O2 Sat by Pulse 97 Oximetry (%) 12/22/17 12/23/17 12/23/17 22:00 00:59 01:00 Temperature 97.5 F L Pulse Rate 85 Respiratory 20 Rate Blood Pressure 145/105 H 156/109 H 159/108 H O2 Sat by Pulse 97 Oximetry (%) GENERAL: Awake, alert, and fully oriented, in no acute distress. HEAD: Normal with no signs of trauma. EYES: Pupils equal, round and reactive to light, extraocular movements intact EARS, NOSE, THROAT: Ears normal, nares patent NECK: Normal range of motion, supple without lymphadenopathy, JVD, or masses. LUNGS: Breath sounds equal, clear to auscultation bilaterally HEART: Regular rate and rhythm, normal S1 and S2 without murmur, rub or gallop. ABDOMEN: Soft, nontender, not distended, normoactive bowel sounds MUSCULOSKELETAL: Normal range of motion at all joints UPPER EXTREMITIES: 2+ pulses, warm, well-perfused. No cyanosis LOWER EXTREMITIES: 2+ pulses, warm, well-perfused. No calf tenderness. NEUROLOGICAL: Cranial nerves II-XII intact. Normal speech. Normal gait. PSYCHIATRIC: Cooperative. Good eye contact. Appropriate mood and affect. SKIN: Warm, dry, normal turgor, no rashes or lesions noted Laboratory Results - last 24 hr 12/22/17 12/22/17 12/22/17 05:49 07:51 07:51 WBC 6.5 RBC 5.08 Hgb 14.5 Hct 44.3 MCV 87.1 MCH 28.5 MCHC 32.7 RDW 12.4 Plt Count 185 MPV 10.1 Absolute Neuts (auto) 3.7 Neutrophils % 56.1 D Lymphocytes % 35.0 D Monocytes % 6.6 Eosinophils % 2.0 Basophils % 0.3 Sodium 140 Potassium 4.4 Chloride 102 Carbon Dioxide 32 H Anion Gap 6 L BUN 23 H Creatinine 1.4 H Creat Clearance w eGFR 50.55 POC Glucometer 132 Random Glucose 158 H Hemoglobin A1c % Calcium 8.9 Phosphorus 3.3 Magnesium 2.1 Troponin I Triglycerides 50 Cholesterol 177 Total LDL Cholesterol 124 HDL Cholesterol 43 12/22/17 12/22/17 12/22/17 07:51 07:51 13:10 WBC RBC Hgb Hct MCV MCH MCHC RDW Plt Count MPV Absolute Neuts (auto) Neutrophils % Lymphocytes % Monocytes % Eosinophils % Basophils % Sodium Potassium Chloride Carbon Dioxide Anion Gap BUN Creatinine Creat Clearance w eGFR POC Glucometer 187 Random Glucose Hemoglobin A1c % 7.8 H Calcium Phosphorus Magnesium Troponin I 0.03 Triglycerides Cholesterol Total LDL Cholesterol HDL Cholesterol 12/22/17 12/22/17 19:22 22:24 WBC RBC Hgb Hct MCV MCH MCHC RDW Plt Count MPV Absolute Neuts (auto) Neutrophils % Lymphocytes % Monocytes % Eosinophils % Basophils % Sodium Potassium Chloride Carbon Dioxide Anion Gap BUN Creatinine Creat Clearance w eGFR POC Glucometer 132 127 Random Glucose Hemoglobin A1c % Calcium Phosphorus Magnesium Troponin I Triglycerides Cholesterol Total LDL Cholesterol HDL Cholesterol ASSESSMENT/PLAN: Presenting as transfer from for need for further cardiac workup; Dr. Clancy is Cardiology. 1) Hypertensive emergency causing flash pulmonary edema -HTN improved but still uncontrolled; continue the amlodipine 10mg, clonidine 0.2 TID. Valsartan 320. As still having 160s will add low-dose chlorthalidone onto his regimine today and monitor for improvement. He is asx and satting well on room air. Will avoid further lasix. Echo results reviewed. -Given his risk factors, it is strongly suspected that he has CAD. He needs a Lexiscan when his BP is under better control; this will be done inpatient. -Followup cardiology recs. Thank you Dr. Clancy for you continued help in the management of this patient. 2) Lobular density -Followup CT chest 3) NIDDM -Novolog sliding scale coverage; A1c is 7.8. 4) Likely Diastolic CHF -Per #1 5) Elevated Cr -Trending at 1.4; likely hypertensive CKD. Continue to monitor BMP and trend Cr. Consider OP nephrology association as he is at risk for worsening CKD given his DM and HTN. DVT prophylaxis reviewed Dispo: Keep inpt at [facility] for further CV workup. Visit type - Emergency Visit Emergency Visit: No - New Patient This patient is new to me today: Yes Date on this admission: 12/23/17 - Critical Care Critical Care patient: No
[2017-12-23] MEDS: cloNIDine HCL 0.1 MG TABLET PO SCH ×3 (06:16→22:41)
[2017-12-23] MEDS: HEPARIN NA (PORCINE) 5,000 UNITS/ML 1ML VIAL SQ SCH ×3 (06:16→22:41)
[2017-12-23] MEDS: INSULIN SLIDING SCALE (NOVOLOG) 1 VIAL SQ SCH ×4 (06:21→22:44)
[2017-12-23] MEDS ORDERED: PT OWN MED DRAWER 7, Y5N ONE ×3 (09:06→19:22)
[2017-12-23] MEDS: amLODIPine BESYLATE 10 MG TABLET (FP) PO SCH (09:22)
[2017-12-23] MEDS: VALSARTAN 160 MG TABLET (UD) PO SCH (09:22)
[2017-12-23] MEDS ORDERED: ALBUTEROL SO4 2.5/IPRATROPIUM 0.5 INH SOL 3 ML VIAL.NEB. NEB PRN (12:14)
[2017-12-23] MEDS ORDERED: ALBUTEROL SO4 2.5/IPRATROPIUM 0.5 INH SOL 3 ML VIAL.NEB. NEB ONE (12:14)
[2017-12-23] MEDS: CHLORTHALIDONE 25 MG TABLET PO SCH (13:22)
--- NOTE | 2017-12-23 15:59 | PN ---
Physical Exam: SUBJECTIVE: Patient seen and examined at the bedside. laying flat in bed, in no acute distress. denies shortness of breath. admits to poor medication compliance, forgets to take his bp meds. OBJECTIVE: +bilateral upper and lower lobe wheezing. start on duonebs and monitor Vital Signs Period Temp Pulse Resp BP Sys/Almonte Pulse Ox Last 24 Hr 97.5 F-98.4 F 82-96 18-22 141-167/99-109 97-98 GENERAL: The patient is awake, alert, and fully oriented, in no acute distress. HEAD: Normal with no signs of trauma. EYES: PERRL, extraocular movements intact, sclera anicteric, conjunctiva clear. No ptosis. ENT: Ears normal, nares patent, oropharynx clear without exudates, moist mucous membranes. NECK: Trachea midline, full range of motion, supple. LUNGS: bilateral wheezing. HEART: Regular rate and rhythm ABDOMEN: Soft, nontender, nondistended, normoactive bowel sounds, no guarding, no rebound, no hepatosplenomegaly, no masses. EXTREMITIES: no edema. NEUROLOGICAL: Normal speech, gait not observed. PSYCH: Normal mood, normal affect. SKIN: Warm, dry, normal turgor, no rashes or lesions noted Laboratory Results - last 24 hr 12/22/17 12/22/17 12/23/17 19:22 22:24 11:48 POC Glucometer 132 127 176 Active Medications Generic Name Dose Route Start Last Admin Trade Name Freq PRN Reason Stop Dose Admin Acetaminophen 650 mg 12/22/17 00:57 12/22/17 01:04 Tylenol - PO 650 mg Q6H PRN Administration PAIN OR FEVER Albuterol/Ipratropium 1 amp 12/23/17 12:14 Duoneb - NEB Q6H PRN SHORTNESS OF BREATH Amlodipine Besylate 10 mg 12/22/17 10:00 12/23/17 09:22 Norvasc - PO 10 mg DAILY JAZZMINE Administration Chlorthalidone 25 mg 12/23/17 10:00 12/23/17 13:22 [place]groton - PO 25 mg DAILY JAZZMINE Administration Clonidine 0.2 mg 12/22/17 22:00 12/23/17 13:22 Catapres - PO 0.2 mg TID JAZZMINE Administration Heparin Sodium (Porcine) 5,000 unit 12/22/17 22:00 12/23/17 13:22 Heparin - SQ 5,000 unit TID JAZZMINE Administration Insulin Aspart 1 vial 12/22/17 07:00 12/23/17 13:22 Novolog Vial Sliding Scale - SQ 2 unit ACHS JAZZMINE Administration Protocol Melatonin 5 mg 12/23/17 22:00 Melatonin PO HS PRN INSOMNIA Valsartan 320 mg 12/22/17 10:00 12/23/17 09:22 Diovan - PO 320 mg DAILY JAZZMINE Administration ASSESSMENT/PLAN: Patient is a 67 year old male with a significant past medical history of hypertension (non compliance), diabetes II. Admitted to [facility] and transferred to [place] on 12/22/2017 for hypertensive emergency and flash pulmonary edema. imaging: chest xray: pulmonary edema chest ct: pending ----- problem list: Hypertensive urgency Pulmonary edema Diabetes Non compliance with home medication regimen -------- Cardiology Hypertensive emergency. Pulmonary edema BP elevated on admission 236/140 on arrival to the ED with notation of pulmonary edema on imaging. On Diovan 320mg daily, clonodine 0.2mg tid., chlorthalidone daily. BP not yet at goal but improving since admission. Monitor orthostatics as reports of having some dizziness with standing Tropnins negative x 3, no chest pain, not short of breath On continuous tele monitoring monitor daily weights, intake and output Endocrine: diabetes, chronic On Novolog. maintain blood sugars <180. fen oral intake monitor electrolytes low salt diet prophy heparin Visit type - Emergency Visit Emergency Visit: Yes ED Registration Date: 12/21/17 Care time: The patient presented to the Emergency Department on the above date and was hospitalized for further evaluation of their emergent condition. - New Patient This patient is new to me today: No - Critical Care Critical Care patient: No - Discharge Referral Referred to [facility] Med P.C.: No
--- NOTE | 2017-12-23 17:52 | PN ---
Progress Note, Physician History of Present Illness: No complaints Breathing much improved TEle: NSR 80s - Current Medication List Current Medications: Active Medications Acetaminophen (Tylenol -) 650 mg PO Q6H PRN PRN Reason: PAIN OR FEVER Last Admin: 12/22/17 01:04 Dose: 650 mg Albuterol/Ipratropium (Duoneb -) 1 amp NEB Q6H PRN PRN Reason: SHORTNESS OF BREATH Amlodipine Besylate (Norvasc -) 10 mg PO DAILY [facility] Last Admin: 12/23/17 09:22 Dose: 10 mg Chlorthalidone (Hygroton -) 25 mg PO DAILY [facility] Last Admin: 12/23/17 13:22 Dose: 25 mg Clonidine (Catapres -) 0.2 mg PO TID [facility] Last Admin: 12/23/17 13:22 Dose: 0.2 mg Heparin Sodium (Porcine) (Heparin -) 5,000 unit SQ TID [facility] Last Admin: 12/23/17 13:22 Dose: 5,000 unit Insulin Aspart (Novolog Vial Sliding Scale -) 1 vial SQ ACHS [facility]; Protocol Last Admin: 12/23/17 17:26 Dose: Not Given Melatonin (Melatonin) 5 mg PO HS PRN PRN Reason: INSOMNIA Valsartan (Diovan -) 320 mg PO DAILY [facility] Last Admin: 12/23/17 09:22 Dose: 320 mg - Objective Vital Signs: Vital Signs Temperature 98.3 F 12/23/17 14:10 Pulse Rate 96 H 12/23/17 14:10 Respiratory Rate 18 12/23/17 14:10 Blood Pressure 142/107 H 12/23/17 14:10 O2 Sat by Pulse Oximetry (%) 98 12/23/17 09:00 Constitutional: Yes: No Distress Eyes: Yes: WNL HENT: Yes: WNL Neck: Yes: WNL Cardiovascular: Yes: Regular Rate and Rhythm Respiratory: Yes: CTA Bilaterally Gastrointestinal: Yes: Normal Bowel Sounds Musculoskeletal: Yes: WNL Extremities: Yes: WNL Edema: No Labs: CBC, BMP 12/22/17 07:51 12/22/17 07:51 Assessment/Plan acute pulm edema, HTN emergency: -ER initial bp 236/140 now improved -cxr with acute pulm edema pattern--resolved today (after only lasix 40 po x 1 yest)--likely due to acutely elevated bp (admits to med non-adherence at home) ...? component of rebound effect of clonidine abrupt withdrawal. -BNP 700. -trop neg x 3 -ECG non-ischemic -BP improved, 142/107mmHg -cont amlodipine 10, clonidine 0.2 (incr bid to tid), valsartan 320 -As per Dr. Clancy, will add chlorthalidone if bp not progressively improving--? in am (expect pt will come off lasix quickly here). then spironolactone +/- b- chidi next. -will need inpatient ischemia eval (pharm vasodilator (lexiscan) nuclear stress test) once BP better controlled--clinical presentation is high risk for underlying CAD (though suspect hypertensive heart dz/diast chf here) DM: -per hospitalist
[2017-12-23] MEDS ORDERED: MELATONIN 5 MG TABLETS PO PRN (22:00)
[2017-12-24] MEDS: amLODIPine BESYLATE 10 MG TABLET (FP) PO SCH ×2 (06:00→11:17)
[2017-12-24] MEDS: cloNIDine HCL 0.1 MG TABLET PO SCH ×5 (06:43→21:58)
[2017-12-24] MEDS: HEPARIN NA (PORCINE) 5,000 UNITS/ML 1ML VIAL SQ SCH ×3 (06:43→21:57)
[2017-12-24] MEDS: INSULIN SLIDING SCALE (NOVOLOG) 1 VIAL SQ SCH ×4 (06:44→21:58)
[2017-12-24] MEDS ORDERED: PT OWN MED DRAWER 7, Y5N ONE (09:17)
[2017-12-24 09:35] LABS: BASO % 0.5 % (0-2.0); EOS % 1.9 % (0-4.5); HEMATOCRIT 45.6 % (35.4-49); HEMOGLOBIN 14.5 GM/dL (11.7-16.9); LYMPH % 40.4 % (8-40); MCH 27.7 pg (25.7-33.7); MCHC 31.8 g/dl (32.0-35.9); MEAN CELL VOLUME 87.1 fl (80-96); MEAN PLT VOLUME 9.8 fl (7.5-11.1); MONO % 8.6 % (3.8-10.2); NEUT % 48.6 % (42.8-82.8); PLATELET COUNT 164 K/MM3 (134-434); RBC 5.24 M/mm3 (4.00-5.60); RDW 13.2 % (11.9-15.9); WHITE BLOOD COUNT 6.2 K/mm3 (4.0-10.0)
[2017-12-24] MEDS: CHLORTHALIDONE 25 MG TABLET PO SCH (09:48)
[2017-12-24] MEDS: VALSARTAN 160 MG TABLET (UD) PO SCH (09:48)
[2017-12-24 10:01] LABS: ALBUMIN 3.2 g/dl (3.4-5.0); ALK PHOS 75 U/L (45-117); ANION GAP 10 MMOL/L (8-16); BILIRUBIN,TOTAL 0.5 mg/dL (0.2-1); BLOOD UREA NITROGEN 31 mg/dL (7-18); CALCIUM 8.5 mg/dL (8.5-10.1); CHLORIDE 102 mmol/L (98-107); CO2 27 mmol/L (21-32); CREATININE 1.5 mg/dL (0.55-1.3); GLUCOSE,RANDOM 210 mg/dL (74-106); MAGNESIUM 2.2 mg/dL (1.8-2.4); POTASSIUM 3.6 mmol/L (3.5-5.1); SGOT/AST 13 U/L (15-37); SGPT/ALT 21 U/L (13-61); SODIUM 139 mmol/L (136-145)
--- NOTE | 2017-12-24 10:18 | PN ---
Progress Note, Physician History of Present Illness: No complaints Feel swell Tele: SR 70s - Current Medication List Current Medications: Active Medications Acetaminophen (Tylenol -) 650 mg PO Q6H PRN PRN Reason: PAIN OR FEVER Last Admin: 12/22/17 01:04 Dose: 650 mg Albuterol/Ipratropium (Duoneb -) 1 amp NEB Q6H PRN PRN Reason: SHORTNESS OF BREATH Amlodipine Besylate (Norvasc -) 10 mg PO DAILY COUNTS INCLUDE 234 BEDS AT [facility] Last Admin: 12/24/17 06:00 Dose: 10 mg Chlorthalidone (Hygroton -) 25 mg PO DAILY COUNTS INCLUDE 234 BEDS AT THE [facility] Last Admin: 12/24/17 09:48 Dose: 25 mg Clonidine (Catapres -) 0.2 mg PO TID COUNTS INCLUDE 234 BEDS AT THE [facility] Last Admin: 12/24/17 06:43 Dose: Not Given Heparin Sodium (Porcine) (Heparin -) 5,000 unit SQ TID COUNTS INCLUDE 234 BEDS AT THE [facility] Last Admin: 12/24/17 06:43 Dose: Not Given Insulin Aspart (Novolog Vial Sliding Scale -) 1 vial SQ [facility] COUNTS INCLUDE 234 BEDS AT THE [facility]; Protocol Last Admin: 12/24/17 06:44 Dose: Not Given Melatonin (Melatonin) 5 mg PO HS PRN PRN Reason: INSOMNIA Valsartan (Diovan -) 320 mg PO DAILY COUNTS INCLUDE 234 BEDS AT THE [facility] Last Admin: 12/24/17 09:48 Dose: 320 mg - Objective Vital Signs: Vital Signs Temperature 98 F 12/24/17 09:45 Pulse Rate 86 12/24/17 09:45 Respiratory Rate 20 12/24/17 09:45 Blood Pressure 133/82 12/24/17 09:45 O2 Sat by Pulse Oximetry (%) 98 12/24/17 09:00 Constitutional: Yes: Well Nourished, No Distress Eyes: Yes: WNL HENT: Yes: WNL Neck: Yes: WNL Cardiovascular: Yes: Regular Rate and Rhythm Respiratory: Yes: CTA Bilaterally Gastrointestinal: Yes: Normal Bowel Sounds Musculoskeletal: Yes: WNL Extremities: Yes: WNL Edema: No Labs: CBC, BMP 12/24/17 09:05 12/24/17 09:05 Assessment/Plan acute pulm edema, HTN emergency: -ER initial bp 236/140 now improved -cxr with acute pulm edema pattern--resolved today (after only lasix 40 po x 1 yest)--likely due to acutely elevated bp (admits to med non-adherence at home) ...? component of rebound effect of clonidine abrupt withdrawal. -BNP 700. -trop neg x 3 -ECG non-ischemic -BP improved, 142/107mmHg -cont amlodipine 10, clonidine 0.2 (incr bid to tid), valsartan 320 -As per Dr. Clancy, will add chlorthalidone if bp not progressively improving--? in am (expect pt will come off lasix quickly here). then spironolactone +/- b- chidi next. -will need inpatient ischemia eval (pharm vasodilator (lexiscan) nuclear stress test) once BP better controlled--clinical presentation is high risk for underlying CAD (though suspect hypertensive heart dz/diast chf here) DM: -per hospitalist
[2017-12-24] MEDS ORDERED: ACETAMINOPHEN 325 MG TABLET (FP) PO PRN (11:11)
--- NOTE | 2017-12-24 12:30 | EKG ---
Test Reason : Blood Pressure : / mmHG Vent. Rate : 095 BPM Atrial Rate : 095 BPM P-R Int : 154 ms QRS Dur : 086 ms QT Int : 376 ms P-R-T Axes : 062 -47 097 degrees QTc Int : 472 ms NORMAL SINUS RHYTHM LEFT ANTERIOR FASCICULAR BLOCK BIATRIAL ENLARGEMENT LEFT VENTRICULAR HYPERTROPHY PROLONGED QT ABNORMAL ECG WHEN COMPARED WITH ECG OF 21-DEC-2017 17:53, COMPARED TO EKG NO SIGNIFICANT CHANGE IS FOUND Confirmed by Vinnie Onofre ([id number]) on 12/24/2017 12:30:37 PM Referred By: Confirmed By:Vinnie Onofre
[2017-12-24] MEDS ORDERED: RANITIDINE HCL 150 MG TABLET (FP) PO ONE (14:56)
--- NOTE | 2017-12-24 15:03 | PN ---
Physical Exam: SUBJECTIVE: Patient seen and examined at the bedside. c/o of palpitations overnight, no chest pain. OBJECTIVE: patient initially refusing to take clonidine, reports dizziness aftertaking this medication Will need renal ultrasound in outpatient upon d/c- r/o renal artery stenosis Vital Signs Period Temp Pulse Resp BP Sys/Almonte Pulse Ox Last 24 Hr 98 F-98.4 F 82-104 18-20 133-173/82-107 98-98 GENERAL: The patient is awake, alert, and fully oriented, in no acute distress. HEAD: Normal with no signs of trauma. EYES: PERRL, extraocular movements intact, sclera anicteric, conjunctiva clear. No ptosis. ENT: Ears normal, nares patent, oropharynx clear without exudates, moist mucous membranes. NECK: Trachea midline, full range of motion, supple. LUNGS: clear bilaterally HEART: Regular rate and rhythm ABDOMEN: Soft, nontender, nondistended, normoactive bowel sounds, no guarding, no rebound, no hepatosplenomegaly, no masses. EXTREMITIES: no edema. NEUROLOGICAL: Normal speech, gait not observed. PSYCH: Normal mood, normal affect. SKIN: Warm, dry, normal turgor, no rashes or lesions noted Laboratory Results - last 24 hr 12/23/17 12/23/17 12/23/17 06:20 06:27 17:14 WBC RBC Hgb Hct MCV MCH MCHC RDW Plt Count MPV Absolute Neuts (auto) Neutrophils % Lymphocytes % Monocytes % Eosinophils % Basophils % Nucleated RBC % Sodium Potassium Chloride Carbon Dioxide Anion Gap BUN Creatinine Creat Clearance w eGFR POC Glucometer 145 185 141 Random Glucose Calcium Magnesium Total Bilirubin AST ALT Alkaline Phosphatase Total Protein Albumin 12/23/17 12/24/17 12/24/17 21:52 05:50 09:05 WBC 6.2 RBC 5.24 Hgb 14.5 Hct 45.6 MCV 87.1 MCH 27.7 MCHC 31.8 L RDW 13.2 Plt Count 164 MPV 9.8 Absolute Neuts (auto) 3.0 Neutrophils % 48.6 Lymphocytes % 40.4 H Monocytes % 8.6 Eosinophils % 1.9 Basophils % 0.5 Nucleated RBC % 0 Sodium Potassium Chloride Carbon Dioxide Anion Gap BUN Creatinine Creat Clearance w eGFR POC Glucometer 158 147 Random Glucose Calcium Magnesium Total Bilirubin AST ALT Alkaline Phosphatase Total Protein Albumin 12/24/17 12/24/17 09:05 11:47 WBC RBC Hgb Hct MCV MCH MCHC RDW Plt Count MPV Absolute Neuts (auto) Neutrophils % Lymphocytes % Monocytes % Eosinophils % Basophils % Nucleated RBC % Sodium 139 Potassium 3.6 Chloride 102 Carbon Dioxide 27 Anion Gap 10 BUN 31 H Creatinine 1.5 H Creat Clearance w eGFR 46.68 POC Glucometer 148 Random Glucose 210 H Calcium 8.5 Magnesium 2.2 Total Bilirubin 0.5 AST 13 L ALT 21 Alkaline Phosphatase 75 Total Protein 7.0 Albumin 3.2 L Active Medications Generic Name Dose Route Start Last Admin Trade Name Freq PRN Reason Stop Dose Admin Acetaminophen 650 mg 12/24/17 11:11 Tylenol - PO Q6H PRN PAIN OR FEVER Albuterol/Ipratropium 1 amp 12/23/17 12:14 Duoneb - NEB Q6H PRN SHORTNESS OF BREATH Amlodipine Besylate 10 mg 12/25/17 10:00 Norvasc - PO DAILY [facility] Chlorthalidone 25 mg 12/23/17 10:00 12/24/17 09:48 Hygroton - PO 25 mg DAILY [facility] Administration Clonidine 0.2 mg 12/24/17 14:00 Catapres - PO TID [facility] Heparin Sodium (Porcine) 5,000 unit 12/22/17 22:00 12/24/17 06:43 Heparin - SQ Not Given TID [facility] Insulin Aspart 1 vial 12/23/17 18:42 12/24/17 12:02 Novolog Vial Sliding Scale - SQ Not Given ACHS [facility] Protocol Melatonin 5 mg 12/23/17 22:00 Melatonin PO HS PRN INSOMNIA Ranitidine HCl 150 mg 12/24/17 22:00 Zantac - PO BID [facility] Valsartan 320 mg 12/25/17 10:00 Diovan - PO DAILY [facility] ASSESSMENT/PLAN: Patient is a 67 year old male with a significant past medical history of hypertension (non compliance), diabetes II. Admitted to [facility] and transferred to [facility] on 12/22/2017 for hypertensive emergency and flash pulmonary edema. imaging: chest xray: pulmonary edema chest ct: no acute findings, osteophytes ----- problem list: Hypertensive urgency Pulmonary edema Diabetes Non compliance with home medication regimen -------- Cardiology Hypertensive emergency. resolved Pulmonary edema, resolved. BP elevated on admission 236/140 on arrival to the ED with notation of pulmonary edema on imaging. BP has significantly improved. On Diovan 320mg daily, clonodine 0.2mg tid., chlorthalidone daily. Tropnins negative x 3, no chest pain, not short of breath On continuous tele monitoring-pvc seen monitor daily weights, intake and output for stress test tomorrow. Endocrine: diabetes, chronic On Novolog. maintain blood sugars <180. fen oral intake monitor electrolytes low salt diet prophy heparin Visit type - Emergency Visit Emergency Visit: Yes ED Registration Date: 12/21/17 Care time: The patient presented to the Emergency Department on the above date and was hospitalized for further evaluation of their emergent condition. - New Patient This patient is new to me today: No - Critical Care Critical Care patient: No - Discharge Referral Referred to [facility] Med P.C.: No
[2017-12-24] MEDS: RANITIDINE HCL 150 MG TABLET (FP) PO SCH (22:08)
[2017-12-25] MEDS: INSULIN SLIDING SCALE (NOVOLOG) 1 VIAL SQ SCH ×4 (06:23→21:54)
[2017-12-25] MEDS: cloNIDine HCL 0.1 MG TABLET PO SCH ×4 (06:25→21:55)
[2017-12-25] MEDS: HEPARIN NA (PORCINE) 5,000 UNITS/ML 1ML VIAL SQ SCH ×3 (06:25→21:44)
[2017-12-25 06:59] LABS: BASO % 0.2 % (0-2.0); EOS % 2.5 % (0-4.5); HEMATOCRIT 42.9 % (35.4-49); HEMOGLOBIN 13.7 GM/dL (11.7-16.9); MCH 27.7 pg (25.7-33.7); MEAN CELL VOLUME 86.7 fl (80-96); MEAN PLT VOLUME 9.3 fl (7.5-11.1); MONO % 10.6 % (3.8-10.2); NEUT % 39.7 % (42.8-82.8); PLATELET COUNT 164 K/MM3 (134-434); RBC 4.95 M/mm3 (4.00-5.60); RDW 12.9 % (11.9-15.9)
[2017-12-25 07:31] LABS: ALBUMIN 3.1 g/dl (3.4-5.0); ALK PHOS 70 U/L (45-117); ANION GAP 7 MMOL/L (8-16); BILIRUBIN,TOTAL 0.5 mg/dL (0.2-1); BLOOD UREA NITROGEN 33 mg/dL (7-18); CALCIUM 8.8 mg/dL (8.5-10.1); CHLORIDE 102 mmol/L (98-107); CO2 31 mmol/L (21-32); CREATININE 1.4 mg/dL (0.55-1.3); GLUCOSE,RANDOM 149 mg/dL (74-106); MAGNESIUM 2.4 mg/dL (1.8-2.4); POTASSIUM 3.7 mmol/L (3.5-5.1); SGOT/AST 16 U/L (15-37); SGPT/ALT 22 U/L (13-61); SODIUM 140 mmol/L (136-145); TOT PROT 6.7 g/dl (6.4-8.2)
[2017-12-25] MEDS: RANITIDINE HCL 150 MG TABLET (FP) PO SCH ×2 (09:36→21:44)
[2017-12-25] MEDS ORDERED: amLODIPine BESYLATE 10 MG TABLET (FP) PO SCH (10:00)
[2017-12-25] MEDS ORDERED: VALSARTAN 160 MG TABLET (UD) PO SCH (10:00)
[2017-12-25] MEDS ORDERED: PT OWN MED DRAWER 7, Y5N ONE (14:02)
[2017-12-25] MEDS: CHLORTHALIDONE 25 MG TABLET PO SCH (14:26)
--- NOTE | 2017-12-25 15:17 | PN ---
Progress Note (short form) - Note Progress Note: s: complains of palpitations. no chest pain, dizziness, lightheadedness, edema Current Medications Acetaminophen (Tylenol -) 650 mg PO Q6H PRN PRN Reason: PAIN OR FEVER Albuterol/Ipratropium (Duoneb -) 1 amp NEB Q6H PRN PRN Reason: SHORTNESS OF BREATH Amlodipine Besylate (Norvasc -) 10 mg PO DAILY [facility] Last Admin: 12/25/17 09:34 Dose: 10 mg Chlorthalidone (Hygroton -) 25 mg PO DAILY [facility] Last Admin: 12/25/17 14:26 Dose: 25 mg Clonidine (Catapres -) 0.2 mg PO TID [facility] Last Admin: 12/25/17 13:34 Dose: 0.2 mg Heparin Sodium (Porcine) (Heparin -) 5,000 unit SQ TID [facility] Last Admin: 12/25/17 13:39 Dose: 5,000 unit Insulin Aspart (Novolog Vial Sliding Scale -) 1 vial SQ ACHS [facility]; Protocol Last Admin: 12/25/17 06:23 Dose: Not Given Melatonin (Melatonin) 5 mg PO HS PRN PRN Reason: INSOMNIA Ranitidine HCl (Zantac -) 150 mg PO BID [facility] Last Admin: 12/25/17 09:36 Dose: 150 mg Valsartan (Diovan -) 320 mg PO DAILY [facility] Last Admin: 12/25/17 09:34 Dose: 320 mg - Objective Vital Signs: Vital Signs Period Temp Pulse Resp BP Sys/Almonte Pulse Ox Last 24 Hr 97.7 F-98.8 F 81-86 18-20 142-161/92-98 97-99 Constitutional: Yes: Well Nourished, No Distress Eyes: Yes: WNL HENT: Yes: WNL Neck: Yes: WNL Cardiovascular: Yes: Regular Rate and Rhythm Respiratory: Yes: CTA Bilaterally Gastrointestinal: Yes: Normal Bowel Sounds Musculoskeletal: Yes: WNL Extremities: Yes: WNL Edema: No tele: sinus CXR: acute pulm edema pattern (see HPI) ECG: NSR, prob LVH. left axis. biatrial abnormality. NSTWA I/avl. no path q's Echo 12/22/17: mild conc LVH. nl LVSF (EF 50-55%). nl RV. borderline LA size. valve fxn WNL. no RVSP. nl aortic root. no peric eff. tele: NSR mibi 12/2017 mod zone of inferolateral and lateral reversible defect c/w moderate intensity ischemia, mod to severely reduced LV function with RWMA and EF 33% at rest, 34% at stress Assessment/Plan acute pulm edema, HTN emergency -ER initial bp 236/140 now improved -cxr with acute pulm edema pattern resolved with one dose lasix 40 mg PO, was likely due to acutely elevated bp - may have component of rebound effect of clonidine abrupt withdrawal, admits to noncompliance at home -BNP 700 -trop neg x 3 -ECG non-ischemic -BP improved with amlodipine 10, clonidine 0.2 (incr bid to tid), valsartan 320 , chlorthalidone 25 mg daily -stress test shows EF 33%, moderate ischemia of inferolatera/lateral wall - referred for cardiac cath at [facility] patient is agreeable, accepted by Dr. Juliocesar Lopez - start aspirin, atorvastatin 40 mg daily, metoprolol 12.5 mg daily - discussed with hospitalist DM: -per hospitalist
--- NOTE | 2017-12-25 17:30 | PN ---
Physical Exam: SUBJECTIVE: 67 year old M with HTN and DMII reports intermittent palpitations, otherwise he denies CP, dyspnea and dizziness at time of exam. Patient is aware of his abnormal stress test results and is amenable to transfer to [place] for cardiac cath. OBJECTIVE: Vital Signs Period Temp Pulse Resp BP Sys/Almonte Pulse Ox Last 24 Hr 97.7 F-98.8 F 81-86 18-20 142-161/92-98 97-99 GENERAL: The patient is awake, alert, and fully oriented, in no acute distress. HEAD: Normal with no signs of trauma. EYES: PERRL, extraocular movements intact, sclera anicteric, conjunctiva clear. ENT: Ears normal, nares patent, oropharynx clear without exudates, moist mucous membranes. NECK: Trachea midline, full range of motion, supple. LUNGS: Breath sounds equal, clear to auscultation bilaterally, no wheezes, no crackles, no accessory muscle use. HEART: Regular rate and rhythm, S1, S2 without murmur, rub or gallop. ABDOMEN: Soft, nontender, nondistended, normoactive bowel sounds, no guarding, no rebound, no hepatosplenomegaly, no masses. EXTREMITIES: 2+ pulses, warm, well-perfused, no edema. NEUROLOGICAL: Cranial nerves II through XII grossly intact. Normal speech, gait not observed. PSYCH: Normal mood, normal affect. SKIN: Warm, dry, normal turgor, no rashes or lesions noted DIAGNOSTIC IMAGING: STRESS TEST 12/25/17 IMPRESSION: moderate zone of inferolateral and lateral reversible defect compatible with moderate intensity ischemia. Moderate to severely reduced LV systoluc function with regional wall motion abnormalities and calculated EF 33% at rest. Laboratory Results - last 24 hr 12/24/17 12/25/17 12/25/17 21:55 05:30 05:30 WBC 6.0 RBC 4.95 Hgb 13.7 Hct 42.9 MCV 86.7 MCH 27.7 MCHC 32.0 RDW 12.9 Plt Count 164 MPV 9.3 Absolute Neuts (auto) 2.4 Neutrophils % 39.7 L Lymphocytes % 47.0 H Monocytes % 10.6 H Eosinophils % 2.5 Basophils % 0.2 Nucleated RBC % 0 Sodium 140 Potassium 3.7 Chloride 102 Carbon Dioxide 31 Anion Gap 7 L BUN 33 H Creatinine 1.4 H Creat Clearance w eGFR 50.55 POC Glucometer 177 Random Glucose 149 H Calcium 8.8 Magnesium 2.4 Total Bilirubin 0.5 AST 16 ALT 22 Alkaline Phosphatase 70 Total Protein 6.7 Albumin 3.1 L 12/25/17 12/25/17 06:22 16:26 WBC RBC Hgb Hct MCV MCH MCHC RDW Plt Count MPV Absolute Neuts (auto) Neutrophils % Lymphocytes % Monocytes % Eosinophils % Basophils % Nucleated RBC % Sodium Potassium Chloride Carbon Dioxide Anion Gap BUN Creatinine Creat Clearance w eGFR POC Glucometer 134 176 Random Glucose Calcium Magnesium Total Bilirubin AST ALT Alkaline Phosphatase Total Protein Albumin Active Medications Generic Name Dose Route Start Last Admin Trade Name Freq PRN Reason Stop Dose Admin Acetaminophen 650 mg 12/24/17 11:11 Tylenol - PO Q6H PRN PAIN OR FEVER Albuterol/Ipratropium 1 amp 12/23/17 12:14 Duoneb - NEB Q6H PRN SHORTNESS OF BREATH Amlodipine Besylate 10 mg 12/25/17 10:00 12/25/17 09:34 Norvasc - PO 10 mg DAILY [facility] Administration Chlorthalidone 25 mg 12/23/17 10:00 12/25/17 14:26 Hygroton - PO 25 mg DAILY [facility] Administration Clonidine 0.2 mg 12/24/17 14:00 12/25/17 13:34 Catapres - PO 0.2 mg TID [facility] Administration Heparin Sodium (Porcine) 5,000 unit 12/22/17 22:00 12/25/17 13:39 Heparin - SQ 5,000 unit TID [facility] Administration Insulin Aspart 1 vial 12/23/17 18:42 12/25/17 11:49 Novolog Vial Sliding Scale - SQ Not Given ACHS [facility] Protocol Melatonin 5 mg 12/23/17 22:00 Melatonin PO HS PRN INSOMNIA Ranitidine HCl 150 mg 12/24/17 22:00 12/25/17 09:36 Zantac - PO 150 mg BID [facility] Administration Valsartan 320 mg 12/25/17 10:00 12/25/17 09:34 Diovan - PO 320 mg DAILY [facility] Administration ASSESSMENT/PLAN: 67 year old M with h/o HTN and DMII initially admitted with HTN emergency and flash pulm edema found to have abnormal stress test with plans to transfer to OSH for LHC. 1. HTN -continue norvasc 10mg, and diovan 320mg - continue clonidine 0.2mg TID -start low dose metoprolol 12.5mg q8hr (hold for HR <60bpm and SBP <90mmHG) -chlorthalidone 25mg daily - start ASA 81mg daily - start lipitor 40mg qhs - transfer being arranged to [facility] for cardiac cath, case reviewed with end worker Dr. Martell 2. Pulm congestion ( improved) -c/w albuterol and atrovent - pt euvolemic, hold off on lasix 3. GERD - c/w Zantac 150mg BID 4. DMII insulin SS 5.PPX -PRN APAP for pain -melatonin 5mg qhs -heparin SC TID Visit type - Emergency Visit Emergency Visit: Yes ED Registration Date: 12/21/17 Care time: The patient presented to the Emergency Department on the above date and was hospitalized for further evaluation of their emergent condition. - New Patient This patient is new to me today: Yes Date on this admission: 12/25/17 - Critical Care Critical Care patient: No - Discharge Referral Referred to [facility] Med P.C.: No
[2017-12-25] MEDS ORDERED: ASPIRIN 81 MG CHEWABLE TABLETS PO ONE (17:45)
[2017-12-25] MEDS ORDERED: POTASSIUM CHLORIDE TABS 20 MEQ TABLET.ER (FP) PO ONE (17:54)
[2017-12-25] MEDS ORDERED: ASPIRIN 81 MG CHEWABLE TABLETS ONE (18:06)
--- NOTE | 2017-12-25 20:10 | DS ---
Physical Exam: SUBJECTIVE: Patient seen and examined OBJECTIVE: Vital Signs Period Temp Pulse Resp BP Sys/Almonte Pulse Ox Last 24 Hr 97.7 F-98.8 F 81-87 18-20 142-161/92-98 97-99 PHYSICAL EXAM GENERAL: The patient is awake, alert, and fully oriented, in no acute distress. HEAD: Normal with no signs of trauma. EYES: PERRL, extraocular movements intact, sclera anicteric, conjunctiva clear. ENT: Ears normal, nares patent, oropharynx clear without exudates, moist mucous membranes. NECK: Trachea midline, full range of motion, supple. LUNGS: Breath sounds equal, clear to auscultation bilaterally, no wheezes, no crackles, no accessory muscle use. HEART: Regular rate and rhythm, S1, S2 without murmur, rub or gallop. ABDOMEN: Soft, nontender, nondistended, normoactive bowel sounds, no guarding, no rebound, no hepatosplenomegaly, no masses. EXTREMITIES: 2+ pulses, warm, well-perfused, no edema. NEUROLOGICAL: Cranial nerves II through XII grossly intact. Normal speech, gait not observed. PSYCH: Normal mood, normal affect. SKIN: Warm, dry, normal turgor, no rashes or lesions noted. LABS Laboratory Results - last 24 hr 12/24/17 12/25/17 12/25/17 21:55 05:30 05:30 WBC 6.0 RBC 4.95 Hgb 13.7 Hct 42.9 MCV 86.7 MCH 27.7 MCHC 32.0 RDW 12.9 Plt Count 164 MPV 9.3 Absolute Neuts (auto) 2.4 Neutrophils % 39.7 L Lymphocytes % 47.0 H Monocytes % 10.6 H Eosinophils % 2.5 Basophils % 0.2 Nucleated RBC % 0 Sodium 140 Potassium 3.7 Chloride 102 Carbon Dioxide 31 Anion Gap 7 L BUN 33 H Creatinine 1.4 H Creat Clearance w eGFR 50.55 POC Glucometer 177 Random Glucose 149 H Calcium 8.8 Magnesium 2.4 Total Bilirubin 0.5 AST 16 ALT 22 Alkaline Phosphatase 70 Total Protein 6.7 Albumin 3.1 L 12/25/17 12/25/17 06:22 16:26 WBC RBC Hgb Hct MCV MCH MCHC RDW Plt Count MPV Absolute Neuts (auto) Neutrophils % Lymphocytes % Monocytes % Eosinophils % Basophils % Nucleated RBC % Sodium Potassium Chloride Carbon Dioxide Anion Gap BUN Creatinine Creat Clearance w eGFR POC Glucometer 134 176 Random Glucose Calcium Magnesium Total Bilirubin AST ALT Alkaline Phosphatase Total Protein Albumin HOSPITAL COURSE: Date of Admission:12/21/17 Date of Discharge: 12/25/17 Discharge Summary Reason For Visit: PULMONARY EDEMA,HTN Current Active Problems CHF (congestive heart failure) (Acute) Diabetes mellitus (Acute) Hypertensive emergency (Acute) Pulmonary edema (Acute) SOB (shortness of breath) (Acute) Condition: Stable - Instructions Referrals: Maximino Werner MD [Primary Care Provider] - 1 Week - Home Medications Comprehensive Discharge Medication List: Ambulatory Orders Amlodipine Bes/Olmesartan Med [Chyna 10-40 mg Tablet] 1 each PO DAILY 12/21/17 Clonidine HCl [Catapres] 0.2 mg PO BID 12/21/17 Nebivolol HCl [Bystolic] 10 mg PO DAILY 12/21/17 Sitagliptin Phos/Metformin HCl [Janumet 50-500 mg Tablet] 1 each PO BID - Discharge Referral Referred to [facility] Med P.C.: No
[2017-12-25 20:21] VITALS: BP 165/101; PULSE 77; TEMP 98.4
[2017-12-25] MEDS ORDERED: METOPROLOL TARTRATE 25 MG TABLET (FP) PO SCH (22:00)
[2017-12-25] MEDS ORDERED: ATORVASTATIN CA 40 MG TABLET (FP) PO SCH (22:00)
--- NOTE | 2017-12-25 23:52 | EKG ---
Test Reason : Blood Pressure : / mmHG Vent. Rate : 108 BPM Atrial Rate : 108 BPM P-R Int : 152 ms QRS Dur : 080 ms QT Int : 356 ms P-R-T Axes : 072 -54 084 degrees QTc Int : 477 ms SINUS TACHYCARDIA BIATRIAL ENLARGEMENT LEFT ANTERIOR FASCICULAR BLOCK LEFT VENTRICULAR HYPERTROPHY ABNORMAL ECG NO PREVIOUS ECGS AVAILABLE Confirmed by VARUN ERICKSON MD ([id number]) on 12/25/2017 11:52:23 PM Referred By: DR OCONNOR Confirmed By:VARUN ERICKSON MD
== END 2017-12-25 22:47 | disposition short-term general hospital (02) | DRG 189 ==
LOC: FER 17:16 → SUPCPDRO 17:16 → FM/S 21:47 → J4W 12-22 21:30
PROVIDERS: ADMIT Internal Medicine; ATTEND Nurse Practitioner Family
DX: J81.0 Acute pulmonary edema (principal); I16.1 Hypertensive emergency; Z91.14 Patient's other noncompliance with medication regimen; Z79.4 Long term (current) use of insulin; K21.9 Gastro-esophageal reflux disease without esophagitis; E11.22 Type 2 diabetes mellitus with diabetic chronic kidney disease; I12.9 Hypertensive chronic kidney disease with stage 1 through stage 4 chronic kidney disease, or unspecified chronic kidney disease; N18.9 Chronic kidney disease, unspecified
CPT/HCPCS: 36415; 71046-TC-FY; 71250-TC; 78452-TC; 80048; 80053; 80061; 81003; 81015; 82550; 82962; 83036; 83735; 83880; 84100; 84484; 85025; 93005; 93010; 93017; 93306-TC; 94640; 99285-25; A9502; J0735; J1644